=== PATIENT | female | born 1995 | race Caucasian/White ===

== ENCOUNTER 2020-10-16 08:55 | Emergency (ER) | payer OTHER ==
[~2020-10-16] VITALS: Ht 160 cm; Wt 54.4 kg
[2020-10-16] MEDS ORDERED: KETO10TA2 PO (15:54)
[2020-10-16] MEDS ORDERED: ZITHROMAX500 MG PO (15:54)
== END 2020-10-16 16:31 | disposition home or self-care (01) ==
LOC: ER 08:55
DX: J31.2 Chronic pharyngitis (principal); J35.01 Chronic tonsillitis; E86.0 Dehydration; Z03.818 Encounter for observation for suspected exposure to other biological agents ruled out

== ENCOUNTER → 2020-12-12 | Emergency (ER) | payer OTHER ==
[~2020-12-12] VITALS: Ht 160 cm; Wt 54.4 kg
[~2020-12-12] MED LIST: CIPRO500 MG PO; KETO10TA2 PO; ZITHROMAX500 MG PO
== END | disposition home or self-care (01) ==
LOC: ER 19:29
DX: S60.571A Other superficial bite of hand of right hand, initial encounter (principal); W54.0XXA Bitten by dog, initial encounter; Y93.89 Activity, other specified; Y92.89 Other specified places as the place of occurrence of the external cause; Y99.8 Other external cause status

== ENCOUNTER 2021-11-07 03:14 | Emergency (ER) | payer OTHER ==
[~2021-11-07] VITALS: Ht 157.5 cm; Wt 59.0 kg
[2021-11-07] MEDS ORDERED: BACTRIM DS TAB1 EACH PO (04:32)
[2021-11-07] MEDS ORDERED: NAPROXEN375 MG PO (04:32)
== END 2021-11-07 04:44 | disposition home or self-care (01) ==
LOC: ER 03:14
DX: S81.811A Laceration without foreign body, right lower leg, initial encounter (principal); W17.89XA Other fall from one level to another, initial encounter; Y93.9 Activity, unspecified; Y92.9 Unspecified place or not applicable; Y99.9 Unspecified external cause status

== ENCOUNTER 2021-11-16 08:29 | Emergency (ER) | payer OTHER ==
[~2021-11-16] VITALS: Ht 157.5 cm; Wt 56.7 kg
[~2021-11-16 08:29] MED LIST changes: +BACTRIM DS TAB1 EACH PO; +NAPROXEN375 MG PO
[2021-11-16] MEDS ORDERED: KETO10TA2 PO (10:11)
[2021-11-16] MEDS ORDERED: DUI500 PO (10:11)
== END 2021-11-16 10:22 | disposition home or self-care (01) ==
LOC: ER 08:29
DX: Z48.02 Encounter for removal of sutures (principal)

== ENCOUNTER 2021-12-07 12:30 | Outpatient (CLI) | payer OTHER ==
[~2021-12-07 12:30] MED LIST changes: +DUI500 PO
== END 2021-12-07 12:41 | disposition home or self-care (01) ==
LOC: RAD 12:30
DX: T81.30XS Disruption of wound, unspecified, sequela (principal); S81.801A Unspecified open wound, right lower leg, initial encounter